=== PATIENT | female | born 1940 | race Caucasian/White ===

== ENCOUNTER → 2017-09-05 | Day surgery (SDC) | payer BC ==
[2017-08-27 09:28] VITALS: BMI 24.0
[~2017-09-05] VITALS: Ht 160 cm; Wt 62.3 kg
[~2017-09-05] MED LIST: AMIT25TA9 PO; BIOTCAP2 PO; BLAC1TAB2 PO; CALCTAB7 PO; CYCL0.052 OPB; DIPH-437 PO; KPP/250 PO; LIDOCAINE HCL 2% 2 ML VIAL (20MG/ML) ONE; MIDAZOLAM HCL 1 MG/ML 2ML VIAL ONE; MULTTAB PO; OMEG10007 PO; ONDANSETRON INJ 2 MG/ML 2 ML VIAL ONE; PROPOFOL IV EMULSION 10 MG/ML 20 ML VIAL IV ONE; SIMV10TA2 PO; SODIUM CHLORIDE 0.9% 500ML 500 ML IV ONE
[2017-09-05 09:58] VITALS: Ht 160 cm; Wt 62.3 kg
[2017-09-05 10:20] VITALS: TEMP 36.4
--- NOTE | 2017-09-05 11:09 | Endo History and Physical ---
History & Physical Date of Service: Sep 05, 2017. Chief Complaint: SCREENING Referring Physician: DR. ALTAMIRANO History of Present Illness 76 yo CF who presents for screening colonoscopy. Past Surgical History Hx Cardiac Surgery: No Hx Internal Defibrillator: No Hx Pacemaker: No Hx Abdominal Surgery: Yes (ANN) Hx of Implantable Prosthesis: No Hx Post-Op Nausea and Vomiting: No Hx Cancer Surgery: No Hx Thoracic Surgery: No Hx Orthopedic: No Hx Urinary Tract Surgery: No Family History None Social History Smoking Status: Former Smoker Hx Substance Use: No Hx Alcohol Use: Yes (OCCASIONAL) Allergies Coded Allergies: Aspirin (Verified Allergy, Mild, stay off due to stomach ulcers, 08/27/17) Iodinated Diagnostic Agents (Verified Allergy, Unknown, IV CONTRAST DYE = HIVES, 08/27/17) Current Medications Reported Home Medications Medications Dose Route/Sig Max Daily Dose Days Date Category Restasis (Cyclosporine (Ophth)) 0.05 % Emu 1 Drop OPB DAILY 08/27/17 Reported Elavil (Amitriptyline Hcl) 25 Mg Tab 25 Mg PO HS 08/27/17 Reported Remifemin (Black Cohosh (Cimicifuga Racem) 20 Mg Tab 1 Tab PO BID 03/22/16 Reported Keppra (Levetiractam) 250 Mg Tab 250 Mg PO BID 12/06/15 Reported Tylenol Pm (Acetaminophen/Diphenhydramine HCl) 500 Mg/25 Mg Tab 1 Tab PO HS PRN 03/04/15 Reported Mvi With Minerals (Multivitamins/Minerals) Tab 1 Tab PO DAILY 08/30/13 Reported Caltrate 600 Plus (Calcium Carbonate-Vitamin D W/) 1 Tab Tab 1 Tab PO BID 08/30/13 Reported Biotin 5000 (Biotin) 5 Mg Cap 500 Mcg PO TID 08/30/13 Reported Zocor (Simvastatin) 10 Mg Tab 10 Mg PO QPM 05/03/11 Reported [place]-3 (Fish Oil) 1 Ea Cap 1,200 Mg PO DAILY 05/03/11 Reported Vital Signs Weight (Kilograms): 62.27 Height (Feet): 5 Height (Inches): 3 Date Time Temp Pulse Resp B/P (MAP) Pulse Ox O2 Delivery O2 Flow Rate FiO2 09/05/17 10:20 36.4 100 20 143/108 (120) 100 Room Air Physical Exam General Appearance: WD/WN, no apparent distress Respiratory/Chest: Auscultation: breath sounds normal Cardiovascular: Heart Auscultation: RRR Abdomen: Bowel Sounds: normal Inspection & Palpation: soft, non-distended, no tenderness, guarding & rebound Assessment and Plan Assessment: 76 yo CF who presents for screening colonoscopy. Plan: Proceed with colonoscopy.
--- NOTE | 2017-09-05 11:40 | Discharge Instructions ---
Endoscopy Patient Instructions Date / Procedure(s) Performed Sep 05, 2017. Colonoscopy Allergy Information Coded Allergies: Aspirin (Verified Allergy, Mild, stay off due to stomach ulcers, 08/27/17) Iodinated Diagnostic Agents (Verified Allergy, Unknown, IV CONTRAST DYE = HIVES, 08/27/17) Discharge Date / Findings Sep 05, 2017. Colon polyp Diverticulosis Internal hemorrhoids Medication Instructions OK to resume all medications today as prescribed Reported Home Medications Medications Dose Route/Sig Max Daily Dose Days Date Category Restasis (Cyclosporine (Ophth)) 0.05 % Emu 1 Drop OPB DAILY 08/27/17 Reported Elavil (Amitriptyline Hcl) 25 Mg Tab 25 Mg PO HS 08/27/17 Reported Remifemin (Black Cohosh (Cimicifuga Racem) 20 Mg Tab 1 Tab PO BID 03/22/16 Reported Keppra (Levetiractam) 250 Mg Tab 250 Mg PO BID 12/06/15 Reported Tylenol Pm (Acetaminophen/Diphenhydramine HCl) 500 Mg/25 Mg Tab 1 Tab PO HS PRN 03/04/15 Reported Mvi With Minerals (Multivitamins/Minerals) Tab 1 Tab PO DAILY 08/30/13 Reported Caltrate 600 Plus (Calcium Carbonate-Vitamin D W/) 1 Tab Tab 1 Tab PO BID 08/30/13 Reported Biotin 5000 (Biotin) 5 Mg Cap 500 Mcg PO TID 08/30/13 Reported Zocor (Simvastatin) 10 Mg Tab 10 Mg PO QPM 05/03/11 Reported [place]-3 (Fish Oil) 1 Ea Cap 1,200 Mg PO DAILY 05/03/11 Reported Provider Instructions Activity Restrictions - No exercising or heavy lifting for 24 hours. - Do not drink alcohol the day of the procedure. - Do not drive a car or operate machinery until the day after the procedure. - Do not make any important decisions or sign important papers in 24 hours after the procedure. Following Day: - Return to full activity which may include returning to work/school. Diet Start your diet with liquids and light foods (jello, soup, juice, toast). Then eat your usual diet if not nauseated. Treatment For Common After Affects For mild abdominal pain, bloating, or excessive gas: - Rest - Eat lightly - Lie on right side Follow-Up Information Follow-up with DR. ALTAMIRANO as scheduled Anesthesia Information What You Should Know You have had a procedure that required some medicine to reduce anxiety and discomfort. This treatment is called moderate sedation. After receiving the treatment, you may be sleepy, but you will be able to breathe on your own. The effects of the treatment may last for several hours. Follow these instructions along with Activity/Diet recommendations noted above: * Do NOT do anything where dizziness or clumsiness would be dangerous. * Rest quietly at home today, then you can be up and about tomorrow. * Have a responsible person stay with you the rest of today. * You may have had an I.V. today. If so, you may take the dressing off later today. Recommendations Call your doctor if: * Trouble breathing * Continuous vomiting for more than 24 hours * Temperature above 101 degrees * Severe abdominal pain or bloating * Pain not relieved by pain medicine ordered * There is increased drainage or redness from any incision * A large amount of rectal bleeding greater than 2-3 tablespoons. (If you had a polyp/s removed or have hemorrhoids, a small amount of blood - from the rectum is to be expected.) * You have any unanswered questions or concerns. IN THE EVENT OF A SERIOUS EMERGENCY, GO TO THE NEAREST EMERGENCY ROOM Your discharge instructions were prepared by provider Giancarlo Tidwell. Patient Instructions Signature Page Aleksandra Hartman Patient (or Guardian) Signature/Date: I have read and understand the instructions given to me by my caregivers. Caregiver/RN/Doctor Signature/Date: The above-named patient and/or guardian has received patient instructions on this date. + Original Patient Signature Page (only) stays with chart. Please make copy for patient.
--- NOTE | 2017-09-05 11:46 | GI REPORT ---
Procedure Date: 09/05/2017 11:08 AM Procedure: Colonoscopy Indications: High risk colon cancer surveillance: Personal history of colonic polyps Medicines: Monitored Anesthesia Care Complications: No immediate complications. Estimated Blood Loss: Estimated blood loss: none. Procedure: Pre-Anesthesia Assessment: - Prior to the procedure, a History and Physical was performed, and patient medications and allergies were reviewed. The patient's tolerance of previous anesthesia was also reviewed. The risks and benefits of the procedure and the sedation options and risks were discussed with the patient. All questions were answered, and informed consent was obtained. Prior Anticoagulants: The patient has taken no previous anticoagulant or antiplatelet agents. ASA Grade Assessment: II - A patient with mild systemic disease. After reviewing the risks and benefits, the patient was deemed in satisfactory condition to undergo the procedure. After I obtained informed consent, the scope was passed under direct vision. Throughout the procedure, the patient's blood pressure, pulse, and oxygen saturations were monitored continuously. The scope was introduced through the anus and advanced to the terminal ileum. The colonoscopy was performed without difficulty. The patient tolerated the procedure well. The quality of the bowel preparation was good. The terminal ileum, ileocecal valve, appendiceal orifice, and rectum were photographed. Findings: The perianal and digital rectal examinations were normal. A 5 mm polyp was found in the sigmoid colon. The polyp was sessile. The polyp was removed with a hot snare. Resection was complete, but the polyp tissue was not retrieved. Multiple small-mouthed diverticula were found in the sigmoid colon. Non-bleeding internal hemorrhoids were found during retroflexion. The hemorrhoids were small. Impression: - One 5 mm polyp in the sigmoid colon, removed with a hot snare. Complete resection. Polyp tissue not retrieved. - Diverticulosis in the sigmoid colon. - Non-bleeding internal hemorrhoids. Recommendation: - Resume previous diet. - Continue present medications. - Repeat colonoscopy for surveillance based on pathology results. - Return to primary care physician as previously scheduled. Giancarlo Tidwell DO 09/05/2017 11:45:46 AM This report has been signed electronically. Note Initiated On: 09/05/2017 11:08 AM I attest to the content of the Intraoperative Record and orders documented therein, exceptions below
--- NOTE | 2017-09-05 11:54 | Anesthesiology Progress Note ---
Anesthesia Post Op Note Date & Time Sep 05, 2017 at 11:54 Vital Signs Pain Intensity: 0 Vital Signs Past 12 Hours Date Time Temp Pulse Resp B/P (MAP) Pulse Ox O2 Delivery O2 Flow Rate FiO2 09/05/17 11:44 87 16 108/66 (80) 96 Room Air 09/05/17 10:20 36.4 100 20 143/108 (120) 100 Room Air Notes Mental Status: alert / awake / arousable, participated in evaluation Pt Amnestic to Procedure: Yes Nausea / Vomiting: adequately controlled Pain: adequately controlled Airway Patency, RR, SpO2: stable & adequate BP & HR: stable & adequate Hydration State: stable & adequate Anesthetic Complications: no major complications apparent
[2017-09-05 12:14] VITALS: BP 120/82; PULSE 81; O2SAT 96
== END | disposition home or self-care (01) ==
LOC: C.GI 09:49
PROVIDERS: ATTEND Internal Medicine
DX: Z12.11 Encounter for screening for malignant neoplasm of colon (principal); D12.5 Benign neoplasm of sigmoid colon; K57.30 Diverticulosis of large intestine without perforation or abscess without bleeding; K64.8 Other hemorrhoids; E78.5 Hyperlipidemia, unspecified; Z90.49 Acquired absence of other specified parts of digestive tract; Z87.891 Personal history of nicotine dependence; Z88.6 Allergy status to analgesic agent; Z91.041 Radiographic dye allergy status; Z86.010 Personal history of colon polyps

== ENCOUNTER 2024-02-22 11:00 | Inpatient (IN) ==
[2024-02-22 12:05] LABS: Basophils # (auto) 0.03 K/uL (0.00-0.20); Basophils % (auto) 0.3 %; Eosinophils # (auto) 0.02 K/uL (0.00-0.50); Eosinophils % (auto) 0.2 %; Hematocrit (blood only) 40.3 % (37.0-47.0); Hemoglobin 13.4 g/dl (12.0-16.0); Immature Granulocytes # (auto) 0.03 K/uL (0.01-0.20); Immature Granulocytes % (auto) 0.3 %; Lymphocytes # (auto) 1.19 K/uL (1.20-3.40); Lymphocytes % (auto) 12.2 %; Mean Corpuscular Hemoglobin 29.6 pg (25.0-34.0); Mean Corpuscular Hgb Conc 33.3 g/dL (32.0-36.0); Mean Platelet Volume 9.1 fL (9.4-12.4); Monocytes # (auto) 0.43 K/uL (0.11-0.59); Monocytes % (auto) 4.4 %; Neutrophils # (auto) 8.04 K/uL (1.40-6.50); Neutrophils % (auto) 82.6 %; Platelet Count 300 K/uL (130-400); RDW Coefficient of Variation 13.2 % (11.5-14.5); RDW Standard Deviation 43.1 fL (36.4-46.3); Red Blood Count 4.53 M/uL (4.20-5.40); White Blood Count 9.74 K/ul (4.8-10.8)
[2024-02-22] MEDS: diphenhydrAMINE 50 MG/ML VIAL IV ONE (12:20)
[2024-02-22 12:23] LABS: Albumin Level 4.4 gm/dl (3.4-5.0); BUN Creatinine Ratio 23.7 (10-20); Bilirubin Direct 0.3 mg/dl (0-0.2); Bilirubin,Total 1.2 mg/dl (0.2-1.0); Calcium 9.4 mg/dl (8.6-10.3); Creatinine Clr Calc Pharmacy 52.2 ml/min; Est GFR (African American) 83.5 ml/min; Potassium 3.4 mmol/L (3.5-5.1); Total Protein 7.5 gm/dl (6.0-8.3)
[2024-02-22] MEDS: OPTIRAY 320 100ml IV ONE (12:33)
--- NOTE | 2024-02-22 12:52 | CT Scan Report ---
CT abd pelvis IV con only CLINICAL HISTORY: Diverticulitis, LLQ pain TECHNIQUE: Helical axial images of the abdomen and pelvis were obtained and displayed. Automated dose lowering techniques and/or adjustment according to patient size were utilized for this exam. This e xam was performed with intravenous contrast. CT DOSE: 952.49 mGy.cm COMPARISON: Comparison is made to CT abdomen pelvis 06/10/2019 FINDINGS: Lower chest: Bibasilar atelectasis versus scarring is seen. Liver: Unremarkable. No focal lesions are seen. Gallbladder and biliary tree: Patient is status post cholecystectomy. Physiologic prominence of the b iliary ducts is noted. Pancreas: Unremarkable, no focal lesions. Spleen: Unremarkable. Adrenals: Unremarkable. Kidneys and ureters: Unremarkable. Bladder: Unremarkable. Reproductive organs: Uterus is retroverted. Calcified fibroids are seen. Bowel: Numerous diverticula are seen. There is wall thickening in the distal descending colon with lovelace rrounding fat stranding. The appendix is normal. Lymph nodes Retroperitoneal: Unremarkable. Pelvic: Unremarkable. Mesenteric: Unremarkable. Peritoneum: Fat stranding surrounds the descending colon. No fluid collections are seen. There are fo ci of pneumoperitoneum. Vessels: Atherosclerotic calcifications are seen. Abdominal wall: Unremarkable. Bones: Degenerative changes in the visualized spine. IMPRESSION: Diverticulitis is seen without evidence of perforation. No abscess formation is seen. Additional find ings as above. ACT 112: Negative or not required by law. Electronically signed by: Pradeep Bernal M.D. 02/22/2024 12:50 PM
[2024-02-22] MEDS: AMOXICILLIN/CLAVULANATE 875 MG TAB PO ONE (13:14)
--- NOTE | 2024-02-22 13:26 | Emergency Department Note ---
Impression & Plan Diverticulitis ED Provider Note NAME: SARAHY MARTINEZ AGE: 83 SEX: F : 1940 ARRIVES VIA: Ambulance INFORMANT: Patient, ED PROVIDER(S): Jorge A Jacobs MD CHIEF COMPLAINT: Left lower quadrant abdominal pain HPI: This is a an 83-year-old female present for left lower abdominal pain. Patient has had no nausea vomiting diarrhea. Has a history of extensive colitis in the past. She is diverticulosis without signs of diverticulitis. No current fevers, chills ROS: See above HPI for pertinent positives & negatives. A total of 10 systems reviewed and were otherwise negative. PAST MEDICAL HISTORY: See Below PAST SURGICAL HISTORY: See Below FAMILY HISTORY: See Below SOCIAL HISTORY: See Below HOME MEDICATIONS: See Below ALLERGIES: See Below VITALS: See Below PHYSICAL EXAMINATION: General: resting comfortably in no acute distress Head: Normocephalic and atraumatic Eyes: Normal inspection, extraocular muscles intact Ear, nose, throat: Normal external exam Neck: Normal range of motion Respiratory: lungs clear to auscultation bilaterally Cardiovascular: Regular rate/rhythm, no murmur GI: Left lower quadrant abdominal tenderness without rebound, voluntary guarding Extremities: nontender, moves all extremities Neuro: The patient awake and alert, appropriately conversive, no focal deficits, symmetric faces Skin: Warm, dry, and intact MEDICAL DECISION MAKING: This is a pleasant 83-year-old female sent for left lower quadrant abdominal pain. Consider diverticulitis, SBO, ovarian torsion, pancreatitis, colitis -Blood work is reviewed showing no leukocytosis or anemia. Blood work otherwise reassuring. Slightly elevated bilirubin to 1.2. Otherwise negative lipase/transaminitis -Patient CT imaging does reveal a diverticulitis, however there is foci of pneumoperitoneum. Initially given Augmentin for his uncomplicated abscess but with pneumoperitoneum we will discuss with the patient -Discussed this with the patient who would prefer admission at this time -Will admit patient at this time for diverticulitis, complicated with mild pneumoperitoneum -Discussed care with hospital service, Dr. Yen Differential diagnosis: Diverticulitis, perforation, abscess, SBO, ovarian torsion, pancreatitis, colitis ER treatment provided: See below Independent History obtained from: Diagnostics interpreted by me: ECG: None Cardiac Monitoring: An order was placed for continuous cardiac monitoring. The monitor shows a rate of 86 with sinus rhythm rhythm. Laboratory studies: As stated above and show below. Imaging studies: See below. Past Med/Surg History Problem List (Updated 02/22/24 @ 13:31 by Jorge A Jacobs MD) Diverticulitis (Acute) Degenerative disc disease PT MANAGES MEDICALLY WITH KEPPRA 500 HS, PT STATES SHE GETS NUMBNESS AND TINGLING RADIATING DOWN RIGHT LEG. Dry eye syndrome (Acute) Other and unspecified hyperlipidemia (Acute) Osteopenia (Acute) Peripheral neuropathy (Acute) Sensorineural hearing loss (SNHL) of both ears (Acute) Recurrent epistaxis Lymphocytic colitis Medical History Colon polyp Acrochordon Benign nevus of skin Chondrodermatitis nodularis helicis Diverticulosis History of gastric ulcer Herpes zoster Internal hemorrhoids Thoracic or lumbosacral neuritis or radiculitis, unspecified Seborrheic keratosis Senile nuclear cataract Tinnitus of both ears Vitamin D deficiency, unspecified History of basal cell carcinoma Abnormal CT scan, colon Distal radius fracture, left Surgical History H/O breast biopsy History of arthroscopy of left shoulder History of colonoscopy with polypectomy History of esophagogastroduodenoscopy (EGD) History of dilatation and curettage History of detached retina repair S/P trigger finger release History of tonsillectomy History of surgical procedure on eye proper using laser History of cataract extraction with lens replacement History of vitrectomy History of trigger finger History of cholecystectomy Family History Family/Other Myocardial infarction Other Hearing loss No family history of adverse response to anesthesia No family history of bleeding disorder Denies family history of Ovarian cancer Crohn's disease Breast cancer Colorectal cancer Ulcerative colitis Social History Smoking Status: Smoker, status unknown Cigarettes Per Day: QUIT 44 YEARS AGO; Second Hand Exposure: No; Do You Dip or Chew Tobacco: No; Hx Alcohol Use: Yes Alcohol type: wine Hx Substance Use: No Preferred Language: Estonian Communication Ability: Effective Beef Grader Required: No Beliefs That Will Affect Care: None Current Living Situation: Alone Current Living Situation Comment: home alone current occupational status: retired Feels Safe at Home: Yes Assistive Devices: Hearing Aid - Bilateral Allergies Allergies Allergy/AdvReac Type Severity Reaction Status Date / Time Iodinated Contrast Media Allergy Intermediate IV Verified 02/22/24 14:43 CONTRAST DYE = HIVES aspirin Allergy Mild stay off Verified 02/22/24 14:43 due to stomach ulcers ibuprofen Allergy Mild stay off Verified 02/22/24 14:43 due to stomach ulcers lactose Allergy Verified 02/22/24 14:43 Home Meds Home Medications Medication Instructions Recorded Confirmed calcium carbonate 500 mg-vitamin 1 tab PO BID 08/29/18 02/22/24 D3 5 mcg (200 unit) tablet (Calcium 500 + D) cyclosporine 0.05 % eye drops in a 1 drp ophthalmic (eye) QAM 08/29/18 02/22/24 dropperette (Restasis) multivitamin 1 cap PO BID 08/29/18 02/22/24 omega 1-mnc-qzl-fish oil 1,000 mg 1 cap PO QAM 08/29/18 02/22/24 (120 mg-180 mg) capsule (Fish Oil) biotin 1 mg capsule 2 mg PO DAILY 06/17/19 02/22/24 levetiracetam 250 mg tablet See Rx Instructions .Route .COMPLEX 11/25/19 02/22/24 (Keppra) simvastatin 10 mg tablet 10 mg PO [id number] 04/07/21 02/22/24 acetaminophen 650 mg 650 mg PO BID PRN pain 01/05/22 02/22/24 tablet,extended release alendronate 70 mg tablet 70 mg PO WK 01/05/22 02/22/24 mecobalamin (vitamin B12) 1,000 1,000 mcg PO 3XWK 01/05/22 02/22/24 mcg chewable tablet amlodipine 5 mg tablet 5 mg PO DAILY 05/16/23 02/22/24 ascorbic acid (vitamin C) 250 mg 250 mg PO BID 02/22/24 02/22/24 tablet cholecalciferol (vitamin D3) 25 50 mcg PO BID 02/22/24 02/22/24 mcg (1,000 unit) tablet (Vitamin D3) Results & Data (ED) Vital Signs Vital Signs - 24 hr 02/22/24 11:06 02/22/24 12:20 02/22/24 12:23 Temperature 36.8 C Temperature Source Oral Pulse Rate 86 97 H Pulse Rate [Finger] 91 H Respiratory Rate 18 16 Respiratory Effort / Characteristics Non-Labored Respiratory Depth Normal Blood Pressure 129/72 Blood Pressure [Left Arm] 128/76 Blood Pressure Mean 91 Blood Pressure Mean [Left Arm] 93 Pulse Oximetry 97 96 Oxygen Delivery Method Room Air Room Air Sepsis Recent Fever Within 48 Hours No Sepsis New/Unexplained Change in Mental Status No Sepsis Action Taken by Nursing No Action Required 02/22/24 13:13 Temperature Temperature Source Pulse Rate Pulse Rate [Finger] 96 H Respiratory Rate 20 Respiratory Effort / Characteristics Non-Labored Respiratory Depth Normal Blood Pressure Blood Pressure [Left Arm] 143/75 H Blood Pressure Mean Blood Pressure Mean [Left Arm] 97 Pulse Oximetry 95 Oxygen Delivery Method Room Air Sepsis Recent Fever Within 48 Hours Sepsis New/Unexplained Change in Mental Status Sepsis Action Taken by Nursing Laboratory Data 02/22/24 11:12 02/22/24 11:12 Lab Results 02/22/24 Range/Units 11:12 WBC 9.74 (4.8-10.8) K/ul RBC 4.53 (4.20-5.40) M/uL Hgb 13.4 (12.0-16.0) g/dl Hct 40.3 (37.0-47.0) % MCV 89.0 (80.0-100.0) fL MCH 29.6 (25.0-34.0) pg MCHC 33.3 (32.0-36.0) g/dL RDW Std Deviation 43.1 (36.4-46.3) fL RDW Coeff of Gabe 13.2 (11.5-14.5) % Plt Count 300 (130-400) K/uL MPV 9.1 L (9.4-12.4) fL Immature Gran % (Auto) 0.3 % Neut % (Auto) 82.6 % Lymph % (Auto) 12.2 % [place] % (Auto) 4.4 % Eos % (Auto) 0.2 % Baso % (Auto) 0.3 % Neut # (Auto) 8.04 H (1.40-6.50) K/uL Lymph # (Auto) 1.19 L (1.20-3.40) K/uL [place] # (Auto) 0.43 (0.11-0.59) K/uL Eos # (Auto) 0.02 (0.00-0.50) K/uL Baso # (Auto) 0.03 (0.00-0.20) K/uL Immature Gran # (Auto) 0.03 (0.01-0.20) K/uL Sodium 137 (136-145) mmol/L Potassium 3.4 L (3.5-5.1) mmol/L Chloride 102 (98-107) mmol/L Carbon Dioxide 25 (21-32) mmol/L Anion Gap 10 (3-11) BUN 18 (6-23) mg/dl Creatinine 0.76 (0.6-1.2) mg/dl Est Cr Clr Drug Dosing 52.2 ml/min Est GFR ( Amer) 83.5 ml/min Est GFR (Non-Af Amer) 72.0 ml/min BUN/Creatinine Ratio 23.7 H (10-20) Glucose 159 H (70-99(Fasting)) mg/dl Calcium 9.4 (8.6-10.3) mg/dl Total Bilirubin 1.2 H (0.2-1.0) mg/dl Direct Bilirubin 0.3 H (0-0.2) mg/dl AST 29 (13-39) U/L ALT 25 (7-52) U/L Alkaline Phosphatase 93 (34-104) U/L Total Protein 7.5 (6.0-8.3) gm/dl Albumin 4.4 (3.4-5.0) gm/dl Lipase 7 L (11-82) U/L Administered Medications Lactated Ringer's (Lr) 1,000 mls @ 80 mls/hr IV .[id number] [facility] Stop: 03/23/24 14:44 Last Admin: 02/22/24 16:04 Dose: 80 mls/hr Documented By: [id number] Discontinued Medications Amoxicillin/Clavulanate Potassium (Amoxicillin/Clavulanate 875 Mg Tab) 1 tab PO NOW ONE; Protocol Stop: 02/22/24 12:56 Last Admin: 02/22/24 13:14 Dose: 1 tab Documented By: CATRACHITA Diphenhydramine HCl (Diphenhydramine 50 Mg/Ml Vial) 50 mg IV ONE ONE Stop: 02/22/24 12:02 Last Admin: 02/22/24 12:20 Dose: 50 mg Documented By: CATRACHITA Ioversol (Optiray 320 100ml) 93 ml IV ONCE ONE Stop: 02/22/24 12:34 Last Admin: 02/22/24 12:33 Dose: 93 ml Documented By: [email or web address] Imaging Data Radiologist's Impression: Abdomen/Pelvis CT 02/22/24 12:01 CT abd pelvis IV con only CLINICAL HISTORY: Diverticulitis, LLQ pain TECHNIQUE: Helical axial images of the abdomen and pelvis were obtained and displayed. Automated dose lowering techniques and/or adjustment according to patient size were utilized for this exam. This exam was performed with intravenous contrast. CT DOSE: 952.49 mGy.cm COMPARISON: Comparison is made to CT abdomen pelvis 06/10/2019 FINDINGS: Lower chest: Bibasilar atelectasis versus scarring is seen. Liver: Unremarkable. No focal lesions are seen. Gallbladder and biliary tree: Patient is status post cholecystectomy. Physiologic prominence of the biliary ducts is noted. Pancreas: Unremarkable, no focal lesions. Spleen: Unremarkable. Adrenals: Unremarkable. Kidneys and ureters: Unremarkable. Bladder: Unremarkable. Reproductive organs: Uterus is retroverted. Calcified fibroids are seen. Bowel: Numerous diverticula are seen. There is wall thickening in the distal descending colon with surrounding fat stranding. The appendix is normal. Lymph nodes Retroperitoneal: Unremarkable. Pelvic: Unremarkable. Mesenteric: Unremarkable. Peritoneum: Fat stranding surrounds the descending colon. No fluid collections are seen. There are foci of pneumoperitoneum. Vessels: Atherosclerotic calcifications are seen. Abdominal wall: Unremarkable. Bones: Degenerative changes in the visualized spine. IMPRESSION: Diverticulitis is seen without evidence of perforation. No abscess formation is seen. Additional findings as above. ACT 112: Negative or not required by law. Electronically signed by: Pradeep Bernal M.D. 02/22/2024 12:50 PM Discharge Plan Visit Data Chief Complaint: Abdominal Pain Stated Complaint: AB PAIN ED Provider: Jorge A Jacobs Discharge Problem: Diverticulitis Patient Disposition: Home - Self-Care Discharge Instructions Interventions: ED Discharge Assessment Last Done: 02/22/24 15:49
[2024-02-22] MEDS ORDERED: ACETAMINOPHEN 325 MG TAB PO PRN ×2 (14:42→17:08)
[2024-02-22] MEDS ORDERED: ONDANSETRON INJ 2 MG/ML 2 ML VIAL IV PRN (14:42)
--- NOTE | 2024-02-22 14:53 | History & Physical Report ---
Date of Service February 22, 2024 Assessment & Plan (1) Diverticulitis: Plan: Assessment: 1. Acute diverticulitis with microperforation with multiple areas of free air foci. N.p.o., IV fluids, IV Zosyn, surgical consultation with Dr. Chapo Curtis who has been contacted by myself. 2. History of diverticulosis. 3. History of peptic ulcer disease. Protonix will be ordered 4. History of vitamin D deficiency. 5. History of basal cell skin carcinoma. 6. History of dyslipidemia. 7. History of hypertension. Continue home medications. 8. History of osteoporosis on Fosamax. 9. Mild hypokalemia 3.4. Patient was placed on lactated Ringer's will reassess her potassium level in the morning. Plan: As described above. Please refer to orders for further planning. History of Present Illness Chief Complaint: Abdominal pain. Primary Care Provider: Yamil Levin DO This is a pleasant 83-year-old female who has a history of diverticulosis. She developed abdominal pain yesterday worsening today presented to the ER for further evaluation and treatment. In the emergency department the patient had stable vital signs. Her laboratory studies revealed a normal CBC. Her C MP was unremarkable. CAT scan of the abdomen pelvis revealed acute diverticulitis with what appears to be microperforation with multiple foci of free air. Course in the ER she received oral Augmentin initially. After CAT scan was resulted. We are called admit the patient further evaluation and treatment with acute diverticulitis with microperforation. We will keep the patient n.p.o., IV fluids, IV Zosyn. We have have obtained general surgical consultation as well with Dr. Chapo Curtis. Allergies Allergy/AdvReac Type Severity Reaction Status Date / Time Iodinated Contrast Media Allergy Intermediate IV Verified 02/22/24 14:43 CONTRAST DYE = HIVES aspirin Allergy Mild stay off Verified 02/22/24 14:43 due to stomach ulcers ibuprofen Allergy Mild stay off Verified 02/22/24 14:43 due to stomach ulcers lactose Allergy Verified 02/22/24 14:43 Home Medications Medication Instructions Recorded Confirmed Type calcium carbonate 500 mg-vitamin 1 tab PO BID 08/29/18 02/22/24 History D3 5 mcg (200 unit) tablet (Calcium 500 + D) cyclosporine 0.05 % eye drops in a 1 drp ophthalmic (eye) QAM 08/29/18 07/30/23 History dropperette (Restasis) multivitamin 1 cap PO QAM 08/29/18 02/22/24 History omega 3-wno-tvb-fish oil 1,000 mg 1 cap PO QAM 08/29/18 02/22/24 History (120 mg-180 mg) capsule (Fish Oil) biotin 1 mg capsule 2 mg PO DAILY 06/17/19 02/22/24 History levetiracetam 250 mg tablet See Rx Instructions .Route .COMPLEX 11/25/19 02/22/24 History (Keppra) simvastatin 10 mg tablet 10 mg PO DAILY 04/07/21 02/22/24 History acetaminophen 650 mg 650 mg PO BID 01/05/22 07/30/23 History tablet,extended release alendronate 70 mg tablet 70 mg PO WK 01/05/22 02/22/24 History mecobalamin (vitamin B12) 1,000 1,000 mcg PO 3XWK 01/05/22 02/22/24 History mcg chewable tablet amlodipine 5 mg tablet 5 mg PO DAILY 05/16/23 02/22/24 History Lactobacillus acidophilus 1 tab PO DAILY 02/22/24 02/22/24 History (Acidophilus chewable tablet) Otc Hot Flash Supplement 1 tab PO DAILY 02/22/24 02/22/24 History amoxicillin 875 mg-potassium 1 tab PO TID 7 days #21 tabs 02/22/24 Rx clavulanate 125 mg tablet ascorbic acid (vitamin C) 250 mg 250 mg PO DAILY 02/22/24 02/22/24 History tablet cholecalciferol (vitamin D3) 25 25 mcg PO DAILY 02/22/24 02/22/24 History mcg (1,000 unit) tablet (Vitamin D3) Past Med/Surg History Problem List (Updated 02/22/24 @ 13:31 by Jorge A Jacobs MD) Diverticulitis (Acute) Degenerative disc disease PT MANAGES MEDICALLY WITH KEPPRA 500 HS, PT STATES SHE GETS NUMBNESS AND TINGLING RADIATING DOWN RIGHT LEG. Dry eye syndrome (Acute) Other and unspecified hyperlipidemia (Acute) Osteopenia (Acute) Peripheral neuropathy (Acute) Sensorineural hearing loss (SNHL) of both ears (Acute) Recurrent epistaxis Lymphocytic colitis Medical History Colon polyp Acrochordon Benign nevus of skin Chondrodermatitis nodularis helicis Diverticulosis History of gastric ulcer Herpes zoster Internal hemorrhoids Thoracic or lumbosacral neuritis or radiculitis, unspecified Seborrheic keratosis Senile nuclear cataract Tinnitus of both ears Vitamin D deficiency, unspecified History of basal cell carcinoma Abnormal CT scan, colon Distal radius fracture, left Surgical History H/O breast biopsy History of arthroscopy of left shoulder History of colonoscopy with polypectomy History of esophagogastroduodenoscopy (EGD) History of dilatation and curettage History of detached retina repair S/P trigger finger release History of tonsillectomy History of surgical procedure on eye proper using laser History of cataract extraction with lens replacement History of vitrectomy History of trigger finger History of cholecystectomy Family History Family/Other Myocardial infarction Other Hearing loss No family history of adverse response to anesthesia No family history of bleeding disorder Denies family history of Ovarian cancer Crohn's disease Breast cancer Colorectal cancer Ulcerative colitis Social History Smoking Status: Never smoker Cigarettes Per Day: QUIT 44 YEARS AGO; Second Hand Exposure: No; Do You Dip or Chew Tobacco: No; Hx Alcohol Use: Yes Alcohol type: beer and wine Hx Substance Use: No Preferred Language: Chilean Communication Ability: Effective Speeder Operator Required: No Beliefs That Will Affect Care: None Current Living Situation: Alone current occupational status: retired Feels Safe at Home: Yes Assistive Devices: Glasses Review of Systems Review of Systems: A 10 point review of system was obtained and unless otherwise stated here or in history of present illness are negative and noncontributory to chief complaint. Physical Exam Physical Exam: In General: In general pleasant 83-year-old female is alert and oriented x 3 at the time of my exam she interacts appropriately and pleasantly. She only has mild abdominal discomfort at this time. HEENT: Normocephalic atraumatic pupils are equal round and reactive to light bilaterally. No scleral icterus no conjunctival injection external auditory canals are patent septum is in the midline nose is without discharge oral mucosa is pink and dry without lesion. NECK: Supple no rigidity no lymphadenopathy no thyromegaly no carotid bruits no JVD no masses. HEART: Regular rate and rhythm I do not appreciate any ectopy or rub. No murmur. LUNGS: Clear to auscultation bilaterally and anteriorly with no evidence of adventitious sounds/wheezes rales or rhonchi. ABDOMEN: Soft, nondistended, mildly tender to palpation especially in the left lower quadrant. No rebound. No peritoneal sign. EXTREMITIES: Intact, no peripheral cyanosis, clubbing or edema. Strength is 5 out of 5 in extremities x4, no pathological reflexes. NEUROLOGICAL: Cranial nerves II through XII are grossly intact with no focal deficit elicited upon examination. Results & Data Results & Data Vital Signs (Past 12 Hours) Vital Signs Temp Pulse Pulse Resp BP BP Pulse Ox 02/22/24 14:45 92 H 16 142/79 H 95 02/22/24 13:13 96 H 20 143/75 H 95 02/22/24 12:23 97 H 02/22/24 12:20 91 H 16 128/76 96 02/22/24 11:06 36.8 C 86 18 129/72 97 O2 Del Method 02/22/24 14:45 02/22/24 13:13 Room Air 02/22/24 12:23 02/22/24 12:20 Room Air 02/22/24 11:06 Room Air Code Status & VTE Plan Code Status Full code. I personally discussed with patient today at the bedside VTE Prophylaxis Plan VTE Prophylaxis will be ordered: Yes PG Care Time/CCT Total # of Minutes Spent Total Time Spent with Patient: Total time spent is greater than 50% in coordination of care (as documented) at patient's floor/unit and/or counseling patient: Coding Level of Care Code 11333 INT INP/OBS CARE 75MIN Diagnoses Diverticulitis K57.92
[2024-02-22] MEDS ORDERED: PIPERACILLIN/TAZOBACTAM 4.5 GM/100 ML BAG IV ONE (15:33)
[2024-02-22] MEDS: LACTATED RINGER'S 1,000 ML IV SCH (16:04)
[2024-02-22] MEDS ORDERED: levETIRAcetam 250 MG TAB PO SCH (16:45)
[2024-02-22] MEDS: ENOXAPARIN INJ 40 MG/0.4 ML SYR SQ SCH (17:18)
[2024-02-22] MEDS ORDERED: ARTIFICIAL TEARS OP PRN (17:34)
[2024-02-22] MEDS: CYANOCOBALAMIN (B-12) 500 MCG TABLET PO SCH (17:48)
[2024-02-22] MEDS: PIPER/TAZO 4.5g in D5W MINI-B 100 ML IV ONE (17:48)
[2024-02-22] MEDS: SIMVASTATIN 10 MG TAB PO SCH (17:49)
--- NOTE | 2024-02-22 18:18 | Surgery Consultation ---
Date of Consultation February 22, 2024 Assessment & Plan (1) Diverticulitis: 83-year-old woman with diverticulitis and microperforation. No surgical intervention is required at this time. She has no signs of peritonitis. Plan for IV fluid hydration, IV antibiotics, bowel rest. We will continue to follow while she is in the hospital. All her questions were answered. History of Present Illness Requesting Physician: Nigel Yen, DO Attending Physician: Nigel Yen, PhD, DO History of Present Illness 83-year-old woman presents with a 2-day history of worsening left lower quadrant abdominal pain and chills. Her last colonoscopy was in 2019, she was diagnosed at that time with colitis as well as diverticulosis. Has had fevers. She denies nausea or vomiting. CT scan demonstrates descending colon diverticulitis with possible microperforation. Allergies Allergy/AdvReac Type Severity Reaction Status Date / Time Iodinated Contrast Media Allergy Intermediate IV Verified 02/22/24 14:43 CONTRAST DYE = HIVES aspirin Allergy Mild stay off Verified 02/22/24 14:43 due to stomach ulcers ibuprofen Allergy Mild stay off Verified 02/22/24 14:43 due to stomach ulcers lactose Allergy Verified 02/22/24 14:43 Home Medications Medication Instructions Recorded Confirmed Type calcium carbonate 500 mg-vitamin 1 tab PO BID 08/29/18 02/22/24 History D3 5 mcg (200 unit) tablet (Calcium 500 + D) cyclosporine 0.05 % eye drops in a 1 drp ophthalmic (eye) QAM 08/29/18 02/22/24 History dropperette (Restasis) multivitamin 1 cap PO BID 08/29/18 02/22/24 History omega 7-erg-tih-fish oil 1,000 mg 1 cap PO QAM 08/29/18 02/22/24 History (120 mg-180 mg) capsule (Fish Oil) biotin 1 mg capsule 2 mg PO DAILY 06/17/19 02/22/24 History levetiracetam 250 mg tablet See Rx Instructions .Route .COMPLEX 11/25/19 02/22/24 History (Keppra) simvastatin 10 mg tablet 10 mg PO 4XWK 04/07/21 02/22/24 History acetaminophen 650 mg 650 mg PO BID PRN pain 01/05/22 02/22/24 History tablet,extended release alendronate 70 mg tablet 70 mg PO WK 01/05/22 02/22/24 History mecobalamin (vitamin B12) 1,000 1,000 mcg PO 3XWK 01/05/22 02/22/24 History mcg chewable tablet amlodipine 5 mg tablet 5 mg PO DAILY 05/16/23 02/22/24 History ascorbic acid (vitamin C) 250 mg 250 mg PO BID 02/22/24 02/22/24 History tablet cholecalciferol (vitamin D3) 25 50 mcg PO BID 02/22/24 02/22/24 History mcg (1,000 unit) tablet (Vitamin D3) Patient History Medical History Colon polyp Acrochordon Benign nevus of skin Chondrodermatitis nodularis helicis Diverticulosis History of gastric ulcer Herpes zoster Internal hemorrhoids Thoracic or lumbosacral neuritis or radiculitis, unspecified Seborrheic keratosis Senile nuclear cataract Tinnitus of both ears Vitamin D deficiency, unspecified History of basal cell carcinoma Abnormal CT scan, colon Distal radius fracture, left Surgical History H/O breast biopsy History of arthroscopy of left shoulder History of colonoscopy with polypectomy History of esophagogastroduodenoscopy (EGD) History of dilatation and curettage History of detached retina repair left S/P trigger finger release History of tonsillectomy History of surgical procedure on eye proper using laser right eye History of cataract extraction with lens replacement History of vitrectomy left History of trigger finger RIGHT HAND History of cholecystectomy Family History Family/Other Myocardial infarction sibling Other Hearing loss No family history of adverse response to anesthesia No family history of bleeding disorder Denies family history of Ovarian cancer Crohn's disease Breast cancer Colorectal cancer Ulcerative colitis Social History Smoking Status: Smoker, status unknown Cigarettes Per Day: QUIT 44 YEARS AGO; Second Hand Exposure: No; Do You Dip or Chew Tobacco: No; Hx Alcohol Use: Yes Alcohol type: wine Hx Substance Use: No Preferred Language: Kinyarwanda Communication Ability: Effective Residential Door Unit Installer Required: No Beliefs That Will Affect Care: None Current Living Situation: Alone Current Living Situation Comment: home alone current occupational status: retired Feels Safe at Home: Yes Assistive Devices: Hearing Aid - Bilateral Review of Systems Review of Systems: All systems reviewed & are unremarkable except as noted in HPI & below Physical Exam Constitutional: WD/WN, vitals as above Eyes: PERRL, conjunctivae normal, anicteric sclerae Neck: trachea midline, no thyromegaly Respiratory: normal respiratory effort; no respiratory distress and no labored breathing Cardiovascular: Rate/Rhythm: regular rate and regular rhythm Gastrointestinal (Abdomen): Inspection/Auscultation: abdomen normal to inspection; abdomen not distended Percussion/Palpation: + abdomen tender ( LLQ) and abdomen soft; no guarding and abdomen not rigid Skin: no rashes, warm and dry Psychiatric: A+Ox3, euthymic affect Results & Data Vital Signs (Past 12 Hours) Vital Signs Temp Pulse Pulse Resp BP BP Pulse Ox 02/22/24 17:32 02/22/24 16:12 37.8 C H 109 H 19 144/76 H 93 02/22/24 16:05 37.8 C H 109 H 19 144/76 H 93 02/22/24 14:45 92 H 16 142/79 H 95 02/22/24 13:13 96 H 20 143/75 H 95 02/22/24 12:23 97 H 02/22/24 12:20 91 H 16 128/76 96 02/22/24 11:06 36.8 C 86 18 129/72 97 O2 Del Method 02/22/24 17:32 Room Air 02/22/24 16:12 Room Air 02/22/24 16:05 Room Air 02/22/24 14:45 02/22/24 13:13 Room Air 02/22/24 12:23 02/22/24 12:20 Room Air 02/22/24 11:06 Room Air Laboratory Results 02/22/24 Range/Units 11:12 WBC 9.74 (4.8-10.8) K/ul RBC 4.53 (4.20-5.40) M/uL Hgb 13.4 (12.0-16.0) g/dl Hct 40.3 (37.0-47.0) % MCV 89.0 (80.0-100.0) fL MCH 29.6 (25.0-34.0) pg MCHC 33.3 (32.0-36.0) g/dL RDW Std Deviation 43.1 (36.4-46.3) fL RDW Coeff of Gabe 13.2 (11.5-14.5) % Plt Count 300 (130-400) K/uL MPV 9.1 L (9.4-12.4) fL Immature Gran % (Auto) 0.3 % Neut % (Auto) 82.6 % Lymph % (Auto) 12.2 % [place] % (Auto) 4.4 % Eos % (Auto) 0.2 % Baso % (Auto) 0.3 % Neut # (Auto) 8.04 H (1.40-6.50) K/uL Lymph # (Auto) 1.19 L (1.20-3.40) K/uL [place] # (Auto) 0.43 (0.11-0.59) K/uL Eos # (Auto) 0.02 (0.00-0.50) K/uL Baso # (Auto) 0.03 (0.00-0.20) K/uL Immature Gran # (Auto) 0.03 (0.01-0.20) K/uL Sodium 137 (136-145) mmol/L Potassium 3.4 L (3.5-5.1) mmol/L Chloride 102 (98-107) mmol/L Carbon Dioxide 25 (21-32) mmol/L Anion Gap 10 (3-11) BUN 18 (6-23) mg/dl Creatinine 0.76 (0.6-1.2) mg/dl Est Cr Clr Drug Dosing 52.2 ml/min Est GFR ( Amer) 83.5 ml/min Est GFR (Non-Af Amer) 72.0 ml/min BUN/Creatinine Ratio 23.7 H (10-20) Glucose 159 H (70-99(Fasting)) mg/dl Calcium 9.4 (8.6-10.3) mg/dl Total Bilirubin 1.2 H (0.2-1.0) mg/dl Direct Bilirubin 0.3 H (0-0.2) mg/dl AST 29 (13-39) U/L ALT 25 (7-52) U/L Alkaline Phosphatase 93 (34-104) U/L Total Protein 7.5 (6.0-8.3) gm/dl Albumin 4.4 (3.4-5.0) gm/dl Lipase 7 L (11-82) U/L Diagnostic Findings CT abd pelvis IV con only CLINICAL HISTORY: Diverticulitis, LLQ pain TECHNIQUE: Helical axial images of the abdomen and pelvis were obtained and displayed. Automated dose lowering techniques and/or adjustment according to patient size were utilized for this exam. This exam was performed with intravenous contrast. CT DOSE: 952.49 mGy.cm COMPARISON: Comparison is made to CT abdomen pelvis 06/10/2019 FINDINGS: Lower chest: Bibasilar atelectasis versus scarring is seen. Liver: Unremarkable. No focal lesions are seen. Gallbladder and biliary tree: Patient is status post cholecystectomy. Physiologic prominence of the biliary ducts is noted. Pancreas: Unremarkable, no focal lesions. Spleen: Unremarkable. Adrenals: Unremarkable. Kidneys and ureters: Unremarkable. Bladder: Unremarkable. Reproductive organs: Uterus is retroverted. Calcified fibroids are seen. Bowel: Numerous diverticula are seen. There is wall thickening in the distal descending colon with surrounding fat stranding. The appendix is normal. Lymph nodes Retroperitoneal: Unremarkable. Pelvic: Unremarkable. Mesenteric: Unremarkable. Peritoneum: Fat stranding surrounds the descending colon. No fluid collections are seen. There are foci of pneumoperitoneum. Vessels: Atherosclerotic calcifications are seen. Abdominal wall: Unremarkable. Bones: Degenerative changes in the visualized spine. IMPRESSION: Diverticulitis is seen without evidence of perforation. No abscess formation is seen. Additional findings as above. ACT 112: Negative or not required by law. Electronically signed by: Pradeep Bernal M.D. 02/22/2024 12:50 PM
[2024-02-22] MEDS: CALCIUM 600MG + VIT D 400 IU TAB PO SCH (20:08)
[2024-02-22] MEDS: levETIRAcetam 250 MG TAB PO SCH (20:08)
[2024-02-22] MEDS: CHOLECALCIFEROL 25 MCG (1000 UNITS) TAB PO SCH (20:08)
[2024-02-22] MEDS: PIPERACILLIN/TAZOBACTAM 4.5 GM in DEXTROSE 5% MINI-B 100 ML IV SCH (22:12)
[2024-02-23 06:47] LABS: Basophils # (auto) 0.05 K/uL (0.00-0.20); Basophils % (auto) 0.6 %; Eosinophils # (auto) 0.05 K/uL (0.00-0.50); Eosinophils % (auto) 0.6 %; Hematocrit (blood only) 34.2 % (37.0-47.0); Hemoglobin 11.4 g/dl (12.0-16.0); Immature Granulocytes # (auto) 0.05 K/uL (0.01-0.20); Immature Granulocytes % (auto) 0.6 %; Lymphocytes % (auto) 15.6 %; Mean Corpuscular Hemoglobin 29.6 pg (25.0-34.0); Mean Corpuscular Hgb Conc 33.3 g/dL (32.0-36.0); Mean Corpuscular Volume 88.8 fL (80.0-100.0); Mean Platelet Volume 8.9 fL (9.4-12.4); Monocytes # (auto) 0.39 K/uL (0.11-0.59); Monocytes % (auto) 4.7 %; Neutrophils # (auto) 6.48 K/uL (1.40-6.50); Neutrophils % (auto) 77.9 %; Platelet Count 211 K/uL (130-400); RDW Coefficient of Variation 13.3 % (11.5-14.5); RDW Standard Deviation 43.7 fL (36.4-46.3); Red Blood Count 3.85 M/uL (4.20-5.40); White Blood Count 8.32 K/ul (4.8-10.8)
[2024-02-23 08:30] LABS: Albumin Level 3.6 gm/dl (3.4-5.0); Bilirubin,Total 1.2 mg/dl (0.2-1.0); Calcium 8.6 mg/dl (8.6-10.3); Potassium 3.9 mmol/L (3.5-5.1)
[2024-02-23 08:37] LABS: Albumin Globulin Ratio 1.4 (0.9-2); BUN Creatinine Ratio 18.2 (10-20); Chol HDL Ratio 2.8 (0-5); Est GFR (African American) 82.2 ml/min; Est GFR (Non-African American) 70.9 ml/min; Globulin 2.6 gm/dl (2.5-4.0); Total Protein 6.2 gm/dl (6.0-8.3)
[2024-02-23] MEDS: amLODIPine BESYLATE 5 MG TAB PO SCH (08:42)
[2024-02-23] MEDS ORDERED: ACETAMINOPHEN 1,000 MG/100 ML VIAL IV PRN (08:45)
--- NOTE | 2024-02-23 08:46 | Hospitalist Progress Note ---
Date of Service February 23, 2024 Assessment & Plan (1) Diverticulitis: Plan: Hx diverticulosis/diverticulitis as well a lymphocytic colitis (follows w/ [facility]) Presented with abdominal pain similar to prior episodes Given Augmentin PO x 1 in ER, CTAP obtained which showed "diverticulitis without evidence of perforation. No abscess formation is seen. Additional findings as above." However, report noting Fat stranding surrounds the descending colon. No fluid collections are seen. There are foci of pneumoperitoneum. concerning for possible microperforation Zosyn IV General surgery consulted - no surgical intervention, will follow while inpatient and recs for bowel rest/IVF/IV abx WBC wnl, afebrile IVF w/ LR @ 80cc/hr K 3.4 on admission, improved/stable 3.9. Mag 2.0 Added IV Tylenol if needed for pain/fever NPO Patient wanting some water/decaff coffee -- abdominal pain MUCH improved/no signs of periotnitis but does still have some tenderness to palpation LLQ and messaged Dr Curtis to discuss possible diet as requested by patient and Dr Curtis OK w/ clear liquid diet --> Ordered clear liquid, LACTOSE intolerant diet (hx lymphocytic colitis) DVT proph: Lovenox SQ while inpatient PPI IVP daily for GI proph given hx PUD, monitor for need to increase (2) Lymphocytic colitis: Plan: hx of such, follows with [facility], last c-scope with Dr Tidwell. Was on ucrevis 9mg per most recent office visit (3) Vitamin D deficiency, unspecified: Plan: History of osteoporosis on Fosamax. (4) History of gastric ulcer: Plan: PPI once daily for GI proph given such (5) Degenerative disc disease: Plan: managed w/ keppra for numbness/tingling of her right leg - continued (6) Peripheral neuropathy: Plan: as above Plan continued inpatient stay on IV abx, trial clear liquid for today but wouldn't advance past for now. Continue to monitor serial abdominal exams. Likely inpatient through weekend w/ slow advancement of diet. Appreciate continued general surgery consult recs/assistance Admission and Anticipated Discharge Date Admission Date: February 22, 2024 Subjective Evaluated this morning, resting in bed. Reports feeling MUCH better than admission, improvement in abdominal pain/no need for pain medication at this time. No further fevers/chills, no nausea/vomiting. She is thirsty. She said it started on evening after coming home from shopping and PT and she thought initially she had a GI bug but then on Sunday she woke up she was in tears. Did have chills/sweating but no documented fever. She reports on when she got home she was cold and she typically runs warm. Discussed diet, cautious w/ CT findings and continued mild discomfort LLQ and wanting to discuss w/ general surgery prior to giving her any diet. She believes he mentioned maybe about "hoping to get her something today". Has not moved her bowels yet today. She does endorse following w/ Dr Case and prior steroid use but has been fairly well controlled recently on once a day Imodium and LACTOSE free diet. Questions/concerns addressed at this time. Physical Exam Physical Exam: General: 83yo female, looks younger than stated age, sitting up in bed, NAD, nurse at bedside, reporting thirsty HEENT: head atraumatic, normocephalic, mm slightly dry, trachea midline Resp: even/unlabored, no w/c/r, on room air CV: RRR, no significant m/r/g, no pitting edema GI: +BS, slightly hypoactive LLQ but present throughout, soft, mild tenderness to deep palpation LLQ/L flank. no guarding/rigidity/rebound or signs of peritonitis : no fuller MSK/Neuro: nonfocal, answering questions appropriately, following commands, not confused Psych: AOx3, cooperative/pleasant with exam Results & Data Results & Data Vital Signs (Past 12 Hours) Vital Signs Temp Pulse Resp BP Pulse Ox O2 Del Method 02/23/24 07:28 37.1 C 82 18 123/71 95 Room Air Laboratory Results 02/23/24 02/22/24 Range/Units 06:14 11:12 WBC 8.32 9.74 (4.8-10.8) K/ul RBC 3.85 L 4.53 (4.20-5.40) M/uL Hgb 11.4 L 13.4 (12.0-16.0) g/dl Hct 34.2 L 40.3 (37.0-47.0) % MCV 88.8 89.0 (80.0-100.0) fL MCH 29.6 29.6 (25.0-34.0) pg MCHC 33.3 33.3 (32.0-36.0) g/dL RDW Std Deviation 43.7 43.1 (36.4-46.3) fL RDW Coeff of Gabe 13.3 13.2 (11.5-14.5) % Plt Count 211 300 (130-400) K/uL MPV 8.9 L 9.1 L (9.4-12.4) fL Immature Gran % (Auto) 0.6 0.3 % Neut % (Auto) 77.9 82.6 % Lymph % (Auto) 15.6 12.2 % [place] % (Auto) 4.7 4.4 % Eos % (Auto) 0.6 0.2 % Baso % (Auto) 0.6 0.3 % Neut # (Auto) 6.48 8.04 H (1.40-6.50) K/uL Lymph # (Auto) 1.30 1.19 L (1.20-3.40) K/uL [place] # (Auto) 0.39 0.43 (0.11-0.59) K/uL Eos # (Auto) 0.05 0.02 (0.00-0.50) K/uL Baso # (Auto) 0.05 0.03 (0.00-0.20) K/uL Immature Gran # (Auto) 0.05 0.03 (0.01-0.20) K/uL Sodium 138 137 (136-145) mmol/L Potassium 3.9 3.4 L (3.5-5.1) mmol/L Chloride 105 102 (98-107) mmol/L Carbon Dioxide 26 25 (21-32) mmol/L Anion Gap 7 10 (3-11) BUN 14 18 (6-23) mg/dl Creatinine 0.77 0.76 (0.6-1.2) mg/dl Est Cr Clr Drug Dosing 50.0 52.2 ml/min Est GFR ( Amer) 82.2 83.5 ml/min Est GFR (Non-Af Amer) 70.9 72.0 ml/min BUN/Creatinine Ratio 18.2 23.7 H (10-20) Glucose 101 H 159 H (70-99(Fasting)) mg/dl Calcium 8.6 9.4 (8.6-10.3) mg/dl Magnesium 2.0 (1.7-2.4) mg/dl Total Bilirubin 1.2 H 1.2 H (0.2-1.0) mg/dl Direct Bilirubin 0.3 H (0-0.2) mg/dl AST 21 29 (13-39) U/L ALT 15 25 (7-52) U/L Alkaline Phosphatase 74 93 (34-104) U/L Total Protein 6.2 7.5 (6.0-8.3) gm/dl Albumin 3.6 4.4 (3.4-5.0) gm/dl Globulin 2.6 (2.5-4.0) gm/dl Albumin/Globulin Ratio 1.4 (0.9-2) Triglycerides 112 (0-150) mg/dl Cholesterol 183 (0-200) mg/dl LDL Cholesterol, Calc 96 mg/dl VLDL Cholesterol, Calc 22 (0-30) mg/dl HDL Cholesterol 65 mg/dl Cholesterol/HDL Ratio 2.8 (0-5) Lipase 7 L (11-82) U/L TSH Pending Diagnostic Findings Abdomen/Pelvis CT 02/22/24 12:01 CT abd pelvis IV con only CLINICAL HISTORY: Diverticulitis, LLQ pain TECHNIQUE: Helical axial images of the abdomen and pelvis were obtained and displayed. Automated dose lowering techniques and/or adjustment according to patient size were utilized for this exam. This exam was performed with intr avenous contrast. CT DOSE: 952.49 mGy.cm COMPARISON: Comparison is made to CT abdomen pelvis 06/10/2019 FINDINGS: Lower chest: Bibasilar atelectasis versus scarring is seen. Liver: Unremarkable. No focal lesions are seen. Gallbladder and biliary tree: Patient is status post cholecystectomy. Physiologic prominence of the biliary ducts is noted. Pancreas: Unremarkable, no focal lesions. Spleen: Unremarkable. Adrenals: Unremarkable. Kidneys and ureters: Unremarkable. Bladder: Unremarkable. Reproductive organs: Uterus is retroverted. Calcified fibroids are seen. Bowel: Numerous diverticula are seen. There is wall thickening in the distal descending colon with surrounding fat stranding. The appendix is normal. Lymph nodes Retroperitoneal: Unremarkable. Pelvic: Unremarkable. Mesenteric: Unremarkable. Peritoneum: Fat stranding surrounds the descending colon. No fluid collections are seen. There are foci of pneumoperitoneum. Vessels: Atherosclerotic calcifications are seen. Abdominal wall: Unremarkable. Bones: Degenerative changes in the visualized spine. IMPRESSION: Diverticulitis is seen without evidence of perforation. No abscess formation is seen. Additional findings as above. ACT 112: Negative or not required by law. Electronically signed by: Pradeep Bernal M.D. 02/22/2024 12:50 PM PG Care Time/CCT Total # of Minutes Spent Total Time Spent with Patient: Total time spent is greater than 50% in coordination of care (as documented) at patient's floor/unit and/or counseling patient: Coding Level of Care Code 70423 SUB INP/OBS CARE 3/50MIN Diagnoses Diverticulitis K57.92 Lymphocytic colitis K52.832 Vitamin D deficiency, unspecified E55.9 History of gastric ulcer Z87.19 Degenerative disc disease Peripheral neuropathy G62.9
[2024-02-23 09:20] LABS: Thyroid Stimulating Hormone 5.18 uIu/ml (0.300-4.500)
[2024-02-23 09:43] LABS: T4 Free Thyroxine 1.08 ng/dl (0.61-1.60)
[2024-02-23] MEDS: PANTOprazole 40 MG in SYRINGE 0 ML IV SCH (10:09)
--- NOTE | 2024-02-23 10:46 | Surgery Progress Note ---
Date of Service February 23, 2024 Assessment & Plan (1) Diverticulitis: Plan: 83-year-old woman with diverticulitis and microperforation. No surgical intervention is required at this time. She has no signs of peritonitis. Plan for IV fluid hydration, IV antibiotics, bowel rest. We will continue to follow while she is in the hospital. All her questions were answered. she continues to improve. Continue IV antibiotics. May start clears. Admission and Anticipated Discharge Date Admission Date: February 22, 2024 Subjective feeling better today. Less pain. No fevers or chills. No nausea or vomiting. Physical Exam Physical Exam: AFVSS NAD, A&O x 3 Soft, mild TTP LLQ Results & Data Vital Signs (Past 12 Hours) Vital Signs Temp Pulse Resp BP Pulse Ox O2 Del Method 02/23/24 07:28 37.1 C 82 18 123/71 95 Room Air Laboratory Results 02/23/24 02/22/24 Range/Units 06:14 11:12 WBC 8.32 9.74 (4.8-10.8) K/ul RBC 3.85 L 4.53 (4.20-5.40) M/uL Hgb 11.4 L 13.4 (12.0-16.0) g/dl Hct 34.2 L 40.3 (37.0-47.0) % MCV 88.8 89.0 (80.0-100.0) fL MCH 29.6 29.6 (25.0-34.0) pg MCHC 33.3 33.3 (32.0-36.0) g/dL RDW Std Deviation 43.7 43.1 (36.4-46.3) fL RDW Coeff of Gabe 13.3 13.2 (11.5-14.5) % Plt Count 211 300 (130-400) K/uL MPV 8.9 L 9.1 L (9.4-12.4) fL Immature Gran % (Auto) 0.6 0.3 % Neut % (Auto) 77.9 82.6 % Lymph % (Auto) 15.6 12.2 % Canyon % (Auto) 4.7 4.4 % Eos % (Auto) 0.6 0.2 % Baso % (Auto) 0.6 0.3 % Neut # (Auto) 6.48 8.04 H (1.40-6.50) K/uL Lymph # (Auto) 1.30 1.19 L (1.20-3.40) K/uL Canyon # (Auto) 0.39 0.43 (0.11-0.59) K/uL Eos # (Auto) 0.05 0.02 (0.00-0.50) K/uL Baso # (Auto) 0.05 0.03 (0.00-0.20) K/uL Immature Gran # (Auto) 0.05 0.03 (0.01-0.20) K/uL Sodium 138 137 (136-145) mmol/L Potassium 3.9 3.4 L (3.5-5.1) mmol/L Chloride 105 102 (98-107) mmol/L Carbon Dioxide 26 25 (21-32) mmol/L Anion Gap 7 10 (3-11) BUN 14 18 (6-23) mg/dl Creatinine 0.77 0.76 (0.6-1.2) mg/dl Est Cr Clr Drug Dosing 50.0 52.2 ml/min Est GFR ( Amer) 82.2 83.5 ml/min Est GFR (Non-Af Amer) 70.9 72.0 ml/min BUN/Creatinine Ratio 18.2 23.7 H (10-20) Glucose 101 H 159 H (70-99(Fasting)) mg/dl Calcium 8.6 9.4 (8.6-10.3) mg/dl Magnesium 2.0 (1.7-2.4) mg/dl Total Bilirubin 1.2 H 1.2 H (0.2-1.0) mg/dl Direct Bilirubin 0.3 H (0-0.2) mg/dl AST 21 29 (13-39) U/L ALT 15 25 (7-52) U/L Alkaline Phosphatase 74 93 (34-104) U/L Total Protein 6.2 7.5 (6.0-8.3) gm/dl Albumin 3.6 4.4 (3.4-5.0) gm/dl Globulin 2.6 (2.5-4.0) gm/dl Albumin/Globulin Ratio 1.4 (0.9-2) Triglycerides 112 (0-150) mg/dl Cholesterol 183 (0-200) mg/dl LDL Cholesterol, Calc 96 mg/dl VLDL Cholesterol, Calc 22 (0-30) mg/dl HDL Cholesterol 65 mg/dl Cholesterol/HDL Ratio 2.8 (0-5) Lipase 7 L (11-82) U/L TSH 5.180 H (0.300-4.500) uIu/ml Free T4 1.08 (0.61-1.60) ng/dl Free T3 Pending
[2024-02-23] MEDS: levETIRAcetam 250 MG TAB PO SCH (12:22)
[2024-02-23] MEDS: MELATONIN 3 MG TAB PO PRN (20:25)
--- NOTE | 2024-02-24 02:03 | Surgery Progress Note ---
Date of Service February 24, 2024 Assessment & Plan (1) Diverticulitis: Plan: 83-year-old woman with diverticulitis and microperforation. No surgical intervention is required at this time. She has no signs of peritonitis. Plan for IV fluid hydration, IV antibiotics, bowel rest. We will continue to follow while she is in the hospital. All her questions were answered. she continues to improve. Continue IV antibiotics. she will most likely need 1 more day of IV antibiotics. will advance to full liquids. Admission and Anticipated Discharge Date Admission Date: February 22, 2024 Subjective Pain is improved but still present in the left lower quadrant. No nausea or vomiting. No bowel movement yet. Tolerating clear liquid diet Physical Exam Physical Exam: AFVSS NAD, A&O x 3 Soft, mild TTP LLQ Results & Data Vital Signs (Past 12 Hours) Vital Signs Temp Pulse Resp BP Pulse Ox O2 Del Method 02/23/24 20:08 37.0 C 84 18 139/80 96 Room Air 02/23/24 15:37 36.7 C 75 18 128/80 95 Room Air
[2024-02-24 07:13] LABS: Mean Corpuscular Hemoglobin 29.7 pg (25.0-34.0); Mean Corpuscular Hgb Conc 34.4 g/dL (32.0-36.0); Mean Corpuscular Volume 86.5 fL (80.0-100.0); Mean Platelet Volume 8.9 fL (9.4-12.4); Platelet Count 204 K/uL (130-400); RDW Coefficient of Variation 12.7 % (11.5-14.5); RDW Standard Deviation 40.5 fL (36.4-46.3); White Blood Count 6.77 K/ul (4.8-10.8)
[2024-02-24 08:05] LABS: Albumin Globulin Ratio 1.3 (0.9-2); Albumin Level 3.4 gm/dl (3.4-5.0); BUN Creatinine Ratio 12.3 (10-20); Bilirubin,Total 0.9 mg/dl (0.2-1.0); Calcium 8.2 mg/dl (8.6-10.3); Creatinine Clr Calc Pharmacy 59.2 ml/min; Est GFR (African American) 94.5 ml/min; Est GFR (Non-African American) 81.5 ml/min; Globulin 2.7 gm/dl (2.5-4.0); Magnesium 1.8 mg/dl (1.7-2.4); Potassium 3.1 mmol/L (3.5-5.1); Total Protein 6.1 gm/dl (6.0-8.3)
--- NOTE | 2024-02-24 08:28 | Hospitalist Progress Note ---
Date of Service February 24, 2024 Assessment & Plan (1) Diverticulitis: Plan: Hx diverticulosis/diverticulitis as well a lymphocytic colitis (follows w/ [facility]) Presented with abdominal pain similar to prior episodes Given Augmentin PO x 1 in ER, CTAP obtained which showed "diverticulitis without evidence of perforation. No abscess formation is seen. Additional findings as above." However, report noting Fat stranding surrounds the descending colon. No fluid collections are seen. There are foci of pneumoperitoneum. concerning for possible microperforation General surgery on consult, conservative management Zosyn IV continued WBC wnl, afebrile Full liquid diet tolerated this morning without issue however did have Large/copious loose stool this morning cdiff to be sent for completeness but has happened to her in the past on abx. If negative, can add imodium 2mg daily prn as takes at home. Not cdiff smelling per nurse but will monitor Discussed w/ Dr Curtis given not really having any pain since moving her bowels and tolerated full liquid/cream of wheat this morning and OK to advance to low fiber diet. (w/ lactose intolerant/gluten free) Continue IVF w/ LR, decreased rate and time out for this evening if no issues/keeping up with oral hydration K 3.1, PO replacement ordered. Mag 1.8 and 1gm IV ordered to keep closer to 2.0 Continue PPI once daily for GI proph (hx PUD/gastric ulcers) DVT proph: SCDs continued. Lovenox SQ while inpatient ordered, but discontinued given hx ulcers and ambulating in the room without issue Continued inpatient stay on IV antibiotics but if continued improvement w/ advancement of diet can transition to PO antibiotics for possible discharge tomorrow. Rec f/u [facility] once resolved from current infection for repeat c- scope as outpatient as discussed w/ Aleksandra (2) Lymphocytic colitis: Plan: hx of such, follows with [facility], last c-scope with Dr Tidwell. Was on ucrevis 9mg per most recent office visit. Typically uses imodium 2mg once daily to keep sx at bay and can order if cdiff testing negative (3) Vitamin D deficiency, unspecified: Plan: History of osteoporosis on Fosamax. (4) History of gastric ulcer: Plan: PPI once daily for GI proph given such. Lovenox SQ has been discontinued (did decline dose on 02/22, no blood in urine/stool reported) (5) Degenerative disc disease: Plan: managed w/ keppra for numbness/tingling of her right leg - continued (6) Peripheral neuropathy: Plan: as above Plan continued inpatient stay on IV abx. diet advanced per discussion w/ general surgery and if continued improvement overnight can plan for discharge tomorrow on oral antibiotics with GI follow up at discharge. Will have drawing tender send message to [facility] for follow up once resolved from current diverticulitis Admission and Anticipated Discharge Date Admission Date: February 22, 2024 Subjective Evaluated around lunch, not very hungry but did have LARGE episode of diarrhea this morning. Had cream of wheat for breakfast without problem. Discussed given prior diarrhea on antibiotics, checking cdiff but if negative can give dose of Imodium but if positive would hold off and need PO Vancomycin. No blood in stool but does have hx ulcers. On PPI once daily for GI proph, did decline her lovenox SQ the night before and is very ambulatory/mobile in the room and discontinued further. No further abdominal pain since moving her bowels. Message to general surgery and will plan to advance her to low fiber diet. Will decrease IVF but if keeping up w/ PO w/ advancement of diet can discontinue. Transition to PO abx in AM planned and did discuss outpt GI f/u for scope once resolved from current diverticulitis. Questions/concerns addressed at this time. Physical Exam 2 Physical Exam: General: 83yo female, looks younger than stated age, sitting up in recliner, NAD, much improved since moving her bowels Head atraumatic, mmm, trachea midline Resp even/unlabored, no w/c/r, on room air CV: RRR, no significant m/r/g, no pitting edema/calf tenderness GI: +BS throughout, less distension, no further tenderness to palpation LLQ (?maybe SLIGHT to DEEP palpation of LLQ only) however MUCH improved no guarding/rigidity/warmth : no fuller MSK/Neuro: nonfocal, answering questions appropriately, following commands, not confused Psych: AOx3, cooperative/pleasant with exam Results & Data Results & Data Vital Signs (Past 12 Hours) Vital Signs Temp Pulse Resp BP Pulse Ox O2 Del Method 02/24/24 07:22 36.2 C L 90 18 148/81 H 97 Room Air Laboratory Results 02/24/24 06:48 02/24/24 06:48 Mag 1.8 Albumin 3.4 PG Care Time/CCT Total # of Minutes Spent Total Time Spent with Patient: Total time spent is greater than 50% in coordination of care (as documented) at patient's floor/unit and/or counseling patient: Coding Level of Care Code 99461 SUB INP/OBS CARE 3/50MIN Diagnoses Diverticulitis K57.92 Lymphocytic colitis K52.832 Vitamin D deficiency, unspecified E55.9 History of gastric ulcer Z87.19 Degenerative disc disease Peripheral neuropathy G62.9
[2024-02-24] MEDS: POTASSIUM CHLORIDE CRTAB 20 MEQ TABCR PO STA (09:56)
[2024-02-24] MEDS: MAGNESIUM SULFATE / D5W 1 GM/100 ML BAG IV ONE (11:17)
[2024-02-24] MEDS: AMOXICILLIN/CLAVULANATE 875 MG TAB PO SCH (17:05)
[2024-02-24] MEDS: LOPERAMIDE HCL 2 MG CAP PO PRN (18:34)
[2024-02-25 07:30] LABS: BUN Creatinine Ratio 12.5 (10-20); Calcium 8.6 mg/dl (8.6-10.3); Creatinine Clr Calc Pharmacy 68.7 ml/min; Est GFR (African American) 99.2 ml/min; Est GFR (Non-African American) 85.6 ml/min; Magnesium 1.9 mg/dl (1.7-2.4); Potassium 3.4 mmol/L (3.5-5.1)
--- NOTE | 2024-02-25 08:03 | Hospitalist Progress Note ---
Date of Service February 25, 2024 Assessment & Plan (1) Diverticulitis: Plan: Hx diverticulosis/diverticulitis as well a lymphocytic colitis (follows w/ [facility]) Presented with abdominal pain similar to prior episodes Given Augmentin PO x 1 in ER, CTAP obtained which showed "diverticulitis without evidence of perforation. No abscess formation is seen. Additional findings as above." However, report noting Fat stranding surrounds the descending colon. No fluid collections are seen. There are foci of pneumoperitoneum. concerning for possible microperforation General surgery on consult, conservative management Zosyn IV continued WBC wnl, afebrile Full liquid diet tolerated this morning without issue however did have Large/copious loose stool this morning cdiff to be sent for completeness but has happened to her in the past on abx. If negative, can add imodium 2mg daily prn as takes at home. Not cdiff smelling per nurse but will monitor Discussed w/ Dr Curtis given not really having any pain since moving her bowels and tolerated full liquid/cream of wheat this morning and OK to advance to low fiber diet. (w/ lactose intolerant/gluten free) Continue IVF w/ LR, decreased rate and time out for this evening if no issues/keeping up with oral hydration K 3.1, PO replacement ordered. Mag 1.8 and 1gm IV ordered to keep closer to 2.0 Continue PPI once daily for GI proph (hx PUD/gastric ulcers) DVT proph: SCDs continued. Lovenox SQ while inpatient ordered, but discontinued given hx ulcers and ambulating in the room without issue Continued inpatient stay on IV antibiotics but if continued improvement w/ advancement of diet can transition to PO antibiotics for possible discharge tomorrow. Rec f/u [facility] once resolved from current infection for repeat c- scope as outpatient as discussed w/ Aleksandra 02/24 Zosyn--> augmentin last night, continue course at dc planned k 3.4, PO replacement ordered IVF discontinued Low fiber diet If feeling well, possible dc today (2) Lymphocytic colitis: Plan: hx of such, follows with [facility], last c-scope with Dr Tidwell. Was on ucrevis 9mg per most recent office visit. Typically uses imodium 2mg once daily to keep sx at bay and can order if cdiff testing negative (3) Vitamin D deficiency, unspecified: Plan: History of osteoporosis on Fosamax. (4) History of gastric ulcer: Plan: PPI once daily for GI proph given such. Lovenox SQ has been discontinued (did decline dose on 02/22, no blood in urine/stool reported) (5) Degenerative disc disease: Plan: managed w/ keppra for numbness/tingling of her right leg - continued (6) Peripheral neuropathy: Plan: as above Plan continued inpatient stay on IV abx. diet advanced per discussion w/ general surgery and if continued improvement overnight can plan for discharge tomorrow on oral antibiotics with GI follow up at discharge. Will have ent nurse send message to [facility] for follow up once resolved from current diverticulitis Admission and Anticipated Discharge Date Admission Date: February 22, 2024 Results & Data Results & Data Vital Signs (Past 12 Hours) Vital Signs Temp Pulse Resp BP Pulse Ox O2 Del Method 02/25/24 07:30 36.4 C L 82 17 144/81 H 98 Room Air 02/24/24 20:14 36.4 C L 91 H 18 159/82 H 99 Room Air Laboratory Results 02/24/24 06:48 02/25/24 06:49 Mag 1.9 PG Care Time/CCT Total # of Minutes Spent Total Time Spent with Patient: Total time spent is greater than 50% in coordination of care (as documented) at patient's floor/unit and/or counseling patient: Coding Diagnoses Diverticulitis K57.92 Lymphocytic colitis K52.832 Vitamin D deficiency, unspecified E55.9 History of gastric ulcer Z87.19 Degenerative disc disease Peripheral neuropathy G62.9
--- NOTE | 2024-02-25 09:21 | Discharge Summary ---
Discharge Summary Date of Service February 25, 2024 Principal Dx & Hospital Course #1 = Principal Diagnosis (1) Diverticulitis: Hx diverticulosis/diverticulitis as well a lymphocytic colitis (follows w/ [facility]) Presented with abdominal pain similar to prior episodes w/ LLQ predominance but thought was GI bug and didn't come in the night before Given Augmentin PO x 1 in ER, CTAP obtained which showed "diverticulitis without evidence of perforation. No abscess formation is seen. Additional findings as above." However, CTAP report noting Fat stranding surrounds the descending colon. No fluid collections are seen. There are foci of pneumoperitoneum. concerning for possible microperforation General surgery consulted, conservative management Placed on Zosyn IV, bowel rest, IVF support and electrolyte replacement as indicated and slowly advanced diet to low fiber (and gluten free/celiac) with resolution in discomfort outside of occassional twinges but moving bowels/cdiff negative and switched to Augmentin to complete the course Given additional Kcl PO prior to dc for K 3.4 and discussed potassium rich foods given dietary restrictions, also to avoid metamucil x at least 2 weeks then increase fiber intake. WBC wnl, afebrile and feeling much better/wanting to go home after seen by Dr Curtis this afternoon and tolerating low fiber diet. DC planned on augmentin with outpatient follow up with Dr Tidwell/[facility] for repea t scope once current episode resolves (2) Lymphocytic colitis: hx of such, follows with [facility], last c-scope with Dr Tidwell. Was on ucrevis 9mg per most recent office visit. Typically uses imodium 2mg once daily to keep sx at bay and ordered x 1 daily given negative cdiff testing outpt GI f/u as above (3) Vitamin D deficiency, unspecified: History of osteoporosis on Fosamax. (4) History of gastric ulcer: PPI once daily for GI proph given such. Lovenox SQ ordered but discontinued given ambulating in the halls and hx ulcer. No evidence for DVT No epigastric pain or blood in stool/urine reported (5) Degenerative disc disease: managed w/ keppra for numbness/tingling of her right leg - continued while inpatient (6) Peripheral neuropathy: as above Plan discharged home on Augmentin/low fiber diet and outpatient GI f/u Notes For Next Care Provider ensure GI f/u for repeat c-scope in 6-8 wks Medication Changes From Visit Augmentin PO BID x 10 days for diverticulitis Admission HPI Per Admitting Provider This is a pleasant 83-year-old female who has a history of diverticulosis. She developed abdominal pain yesterday worsening today presented to the ER for further evaluation and treatment. In the emergency department the patient had stable vital signs. Her laboratory studies revealed a normal CBC. Her C MP was unremarkable. CAT scan of the abdomen pelvis revealed acute diverticulitis with what appears to be microperforation with multiple foci of free air. Course in the ER she received oral Augmentin initially. After CAT scan was resulted. We are called admit the patient further evaluation and treatment with acute diverticulitis with microperforation. We will keep the patient n.p.o., IV fluids, IV Zosyn. We have have obtained general surgical consultation as well with Dr. Chapo Curtis. Admission Exam Per Admitting Provider In General: In general candido 83-year-old female is alert and oriented x 3 at the time of my exam she interacts appropriately and pleasantly. She only has mild abdominal discomfort at this time. HEENT: Normocephalic atraumatic pupils are equal round and reactive to light bilaterally. No scleral icterus no conjunctival injection external auditory canals are patent septum is in the midline nose is without discharge oral mucosa is pink and dry without lesion. NECK: Supple no rigidity no lymphadenopathy no thyromegaly no carotid bruits no JVD no masses. HEART: Regular rate and rhythm I do not appreciate any ectopy or rub. No murmur. LUNGS: Clear to auscultation bilaterally and anteriorly with no evidence of adventitious sounds/wheezes rales or rhonchi. ABDOMEN: Soft, nondistended, mildly tender to palpation especially in the left lower quadrant. No rebound. No peritoneal sign. EXTREMITIES: Intact, no peripheral cyanosis, clubbing or edema. Strength is 5 out of 5 in extremities x4, no pathological reflexes. NEUROLOGICAL: Cranial nerves II through XII are grossly intact with no focal deficit elicited upon examination. Discharge Exam General: 83yo female, looks younger than stated age, sitting up in recliner, NAD, much improved since moving her bowels Head atraumatic, mmm, trachea midline Resp even/unlabored, no w/c/r, on room air CV: RRR, no significant m/r/g, no pitting edema/calf tenderness GI: +BS throughout, less distension, no further tenderness to palpation LLQ (?maybe SLIGHT mild/mod w/ DEEP palpation), MUCH improved no guarding/rigidity/warmth : no fuller MSK/Neuro: nonfocal, answering questions appropriately, following commands, not confused Psych: AOx3, cooperative/pleasant with exam Updated Medication List Medication Instructions Recorded Confirmed Type calcium carbonate 500 mg-vitamin 1 tab PO BID 08/29/18 02/22/24 History D3 5 mcg (200 unit) tablet (Calcium 500 + D) cyclosporine 0.05 % eye drops in a 1 drp ophthalmic (eye) QAM 08/29/18 02/22/24 History dropperette (Restasis) multivitamin 1 cap PO BID 08/29/18 02/22/24 History omega 3-mif-sff-fish oil 1,000 mg 1 cap PO QAM 08/29/18 02/22/24 History (120 mg-180 mg) capsule (Fish Oil) biotin 1 mg capsule 2 mg PO DAILY 06/17/19 02/22/24 History levetiracetam 250 mg tablet See Rx Instructions .Route .COMPLEX 11/25/1902/21 History (Keppra) simvastatin 10 mg tablet 10 mg PO 4XWK 04/07/21 02/22/24 History acetaminophen 650 mg 650 mg PO BID PRN pain 01/05/22 02/22/24 History tablet,extended release alendronate 70 mg tablet 70 mg PO WK 01/05/22 02/22/24 History mecobalamin (vitamin B12) 1,000 1,000 mcg PO 3XWK 01/05/22 02/22/24 History mcg chewable tablet amlodipine 5 mg tablet 5 mg PO DAILY 05/16/23 02/22/24 History ascorbic acid (vitamin C) 250 mg 250 mg PO BID 02/22/24 02/22/24 History tablet cholecalciferol (vitamin D3) 25 50 mcg PO BID 02/22/24 02/22/24 History mcg (1,000 unit) tablet (Vitamin D3) amoxicillin 875 mg-potassium 1 tab PO BIDM 7 days #14 tabs 02/25/24 Rx clavulanate 125 mg tablet Hospital Stay Data Consultations 02/22/24 14:09 ED Decision to Admit Stat 02/22/24 14:29 Consult General Surgery Stat Diagnostic Imagining Performed Abdomen/Pelvis CT 02/22/24 12:01 CT abd pelvis IV con only CLINICAL HISTORY: Diverticulitis, LLQ pain TECHNIQUE: Helical axial images of the abdomen and pelvis were obtained and displayed. Automated dose lowering techniques and/or adjustment according to patient size were utilized for this exam. This exam was performed with intravenous contrast. CT DOSE: 952.49 mGy.cm COMPARISON: Comparison is made to CT abdomen pelvis 06/10/2019 FINDINGS: Lower chest: Bibasilar atelectasis versus scarring is seen. Liver: Unremarkable. No focal lesions are seen. Gallbladder and biliary tree: Patient is status post cholecystectomy. Physiologic prominence of the biliary ducts is noted. Pancreas: Unremarkable, no focal lesions. Spleen: Unremarkable. Adrenals: Unremarkable. Kidneys and ureters: Unremarkable. Bladder: Unremarkable. Reproductive organs: Uterus is retroverted. Calcified fibroids are seen. Bowel: Numerous diverticula are seen. There is wall thickening in the distal descending colon with surrounding fat stranding. The appendix is normal. Lymph nodes Retroperitoneal: Unremarkable. Pelvic: Unremarkable. Mesenteric: Unremarkable. Peritoneum: Fat stranding surrounds the descending colon. No fluid collections are seen. There are foci of pneumoperitoneum. Vessels: Atherosclerotic calcifications are seen. Abdominal wall: Unremarkable. Bones: Degenerative changes in the visualized spine. IMPRESSION: Diverticulitis is seen without evidence of perforation. No abscess formation is seen. Additional findings as above. ACT 112: Negative or not required by law. Electronically signed by: Pradeep Bernal M.D. 02/22/2024 12:50 PM Discharge Instructions Given to Patient (Per Discharging Provider) You have been hospitalized for abdominal pain and found to have diverticulitis with possible microperforation which was contained if occurred. General surgery, Dr Curtis, was consulted and you were able to be managed conservatively with IV antibiotics and bowel rest/IV fluids. White count is normal and you have not had any fevers while in the hospital and your diet has been advanced to low fiber without increased pain and you have been switched to oral AUGMENTIN. Antibiotics have been continued with Augmentin twice daily for a total of 10 days. C. diff testing was NEGATIVE but you should monitor for increased diarrhea while on antibiotics and notify your provider if significant increase in diarrhea/mucu s stools/yellow color as you may need to have this repeated. You can continue a probiotic in the meantime to help prevent this. You should continue low fiber diet for the next 2 weeks and then advance as tolerated. No metamucil until after two weeks. Recommendations are to have follow up colonoscopy following resolution of the acute infection in 6-8 weeks and you should have follow up to discuss with Dr Tidwell. Please follow up with primary care in the next 7-10 days after hospitalization to monitor your progress after discharge. Please return to the ER with any increased abdominal pain/fever, inability to keep up with oral hydration, or for any symptoms unusual or concerning for you. It has been a pleasure being a part of the medical team providing for you while you have been in the hospital. Take care! Total Time Total Time Spent Total Time Spent (In Minutes): 40 Coding Level of Care Code 55966 INP/OBS DISCH >30 MIN Diagnoses Diverticulitis K57.92 Lymphocytic colitis K52.832 Vitamin D deficiency, unspecified E55.9 History of gastric ulcer Z87.19 Degenerative disc disease Peripheral neuropathy G62.9
[2024-02-25] MEDS: POTASSIUM CHLORIDE CRTAB 20 MEQ TABCR PO STA (09:25)
--- NOTE | 2024-02-25 09:59 | Surgery Progress Note ---
Date of Service February 25, 2024 Assessment & Plan (1) Diverticulitis: Plan: 83-year-old woman with diverticulitis and microperforation afebrile, vss minimal pain, moderate pain in LLQ on palpation tolerating diet + bowel function, - c. diff Plan: Okay from surgical standpoint for discharge Low fiber diet for 2-4 weeks then high fiber diet recommended follow up PCP/GI for repeat colonoscopy Admission and Anticipated Discharge Date Admission Date: February 22, 2024 Subjective feeling better, minimal to no pain currently rating 0.5/10. Some twinges of pain in LLQ no n,v tolerating low fiber diet no chills or fevers + diarrhea yesterday + passing gas Physical Exam Constitutional: WD/WN, vitals as above cooperative and comfortable; no acute distress and not ill appearing Respiratory: normal respiratory effort, lungs clear to auscultation Gastrointestinal (Abdomen): Inspection/Auscultation: abdomen normal to inspection; abdomen not distended Percussion/Palpation: + abdomen tender (LLQ on moderate palpation) and abdomen soft; no guarding and abdomen not rigid Skin: no rashes, warm and dry Psychiatric: A+Ox3, euthymic affect Results & Data Vital Signs (Past 12 Hours) Vital Signs Temp Pulse Resp BP Pulse Ox O2 Del Method 02/25/24 07:30 36.4 C L 82 17 144/81 H 98 Room Air Laboratory Results 02/25/24 02/24/24 Range/Units 06:49 11:25 Sodium 138 (136-145) mmol/L Potassium 3.4 L (3.5-5.1) mmol/L Chloride 105 (98-107) mmol/L Carbon Dioxide 24 (21-32) mmol/L Anion Gap 9 (3-11) BUN 7 (6-23) mg/dl Creatinine 0.56 L (0.6-1.2) mg/dl Est Cr Clr Drug Dosing 68.7 ml/min Est GFR ( Amer) 99.2 ml/min Est GFR (Non-Af Amer) 85.6 ml/min BUN/Creatinine Ratio 12.5 (10-20) Glucose 94 (70-99(Fasting)) mg/dl Calcium 8.6 (8.6-10.3) mg/dl Magnesium 1.9 (1.7-2.4) mg/dl Stl C. diff Tox B Gene Negative Cdiff Gene (Neg)
== END 2024-02-25 13:50 | disposition home or self-care (01) | DRG 392 ==
LOC: ED 11:00 → 3N 14:44 → SUATTDRO 14:44 → 3N 15:49